=== PATIENT | female | born 1965 | race Caucasian/White ===

== ENCOUNTER 2019-11-03 17:55 | Inpatient (IN) | payer BC ==
[2019-11-03 18:10] VITALS: BMI 30.2
[2019-11-03] MEDS ORDERED: ONDANSETRON 4 MG/2 ML VIAL ONE (18:25)
[2019-11-03] MEDS ORDERED: FAMOTIDINE 20 MG/50 ML IVPB 20 MG/50 ML MG IVPB ONE ×3 (18:45→22:15)
[2019-11-03] MEDS ORDERED: ONDANSETRON 4 MG/2 ML VIAL IVPUSH ONE (18:50)
[2019-11-03 18:52] LABS: BASO % 0.9 % (0-2.0); EOS % 3.1 % (0-4.5); HEMATOCRIT 38.7 % (32.4-45.2); HEMOGLOBIN 12.7 GM/dL (10.7-15.3); LYMPH % 39.1 % (8-40); MCH 29.3 pg (25.7-33.7); MCHC 32.7 g/dl (32.0-36.0); MEAN CELL VOLUME 89.6 fl (80-96); MEAN PLT VOLUME 8.8 fl (7.5-11.1); MONO % 6.1 % (3.8-10.2); NEUT % 50.8 % (42.8-82.8); PLATELET COUNT 288 K/MM3 (134-434); RBC 4.32 M/mm3 (3.60-5.2); RDW 13.5 % (11.6-15.6); WHITE BLOOD COUNT 5.1 K/mm3 (4.0-10.0)
[2019-11-03 19:26] LABS: ALBUMIN 3.7 g/dl (3.4-5.0); BILIRUBIN,TOTAL 0.2 mg/dL (0.2-1); BLOOD UREA NITROGEN 11.2 mg/dL (7-18); CALCIUM 8.6 mg/dL (8.5-10.1); CREATININE 0.8 mg/dL (0.55-1.3); POTASSIUM 3.9 mmol/L (3.5-5.1); TOT PROT 7.2 g/dl (6.4-8.2)
--- NOTE | 2019-11-03 19:58 | PDOC ---
Documentation entered by Guerline Quevedo SCRIBE, acting as scribe for Mario Alberto Reaves MD. Mario Albreto Reaves MD: This documentation has been prepared by the Sae marte Adrianna, SCRIBE, under my direction and personally reviewed by me in its entirety. I confirm that the documentation accurately reflects all work, treatment, procedures, and medical decision making performed by me. History of Present Illness - General Chief Complaint: Pain Stated Complaint: ABD PAIN, chest pain Time Seen by Provider: 11/03/19 18:33 - History of Present Illness Initial Comments: The patient is a 54 year old female, with a significant PMH of HTN, hypothyroidism, DVT during (no longer on AC at this time), and + anticardiolipin, who presents to the ED for evaluation of abdominal pain for 1.5 hours. Patient complains of sharp pain, 10/10 is most prominent at the epigastrium that radiates into her bilateral shoulders and neck. Her pain is worse with eating, and she endorses associated nausea (without vomit). Patient notes she has had intermittent epigastric discomfort for the past year, but todays episode is much worse than her normal. Denies diarrhea, melena, hematochezia, anorexia, dysuria, frequency, urgency, hematuria, fever or chills. Allergies: NKA, NKDA Surgical History: Gastric bypass Social History: Denies EtOH, tobacco, or illicit drug use PCP: Dr. Quinones Past History - Past Medical History Allergies/Adverse Reactions: Allergies Allergy/AdvReac Type Severity Reaction Status Date / Time No Known Allergies Allergy Verified 11/03/19 18:10 COPD: No - Surgical History Abdominal Surgery: Yes (gastric bypass) - Psycho Social/Smoking Cessation Hx Smoking History: Never smoked Information on smoking cessation initiated: No Hx Alcohol Use: No Drug/Substance Use Hx: No Review of Systems - Review of Systems Comments:: CONSTITUTIONAL: No fever, no chills, no fatigue EYES: No visual changes ENT: No ear pain, no sore throat CARDIOVASCULAR: No chest pain, no palpitations RESPIRATORY: No cough, no SOB GI: +Epigastric abdominal pain that radiates to her bilateral shoulders and neck. +Nauseous. No vomiting, no constipation, no diarrhea GENITOURINARY: No dysuria, no frequency, no hematuria MUSKULOSKELETAL: No back pain, no joint pain, no myalgias SKIN: No rash NEURO: No headache *Physical Exam - Vital Signs Last Vital Signs Temp Pulse Resp BP Pulse Ox 97.8 F 74 19 174/95 H 98 11/03/19 18:06 11/03/19 18:06 11/03/19 18:06 11/03/19 18:06 11/03/19 18:06 - Physical Exam CONSTITUTIONAL: Well-appearing; well-nourished; in no apparent distress HEAD: Normocephalic; atraumatic EYES: PERRL; EOM intact. No scleral icterus. ENMT: External appears normal; normal oropharynx NECK: Supple; non-tender; no cervical lymphadenopathy CARD: Normal S1, S2; no murmurs, rubs, or gallops RESP: Normal chest excursion with respiration; breath sounds clear and equal bilaterally; no wheezes, rhonchi, or rales ABD: +Epigastric tenderness. Soft, non-distended; non-tender; no palpable organomegaly, no palpable hernias EXT: Normal ROM in all four extremities; non-tender to palpation; distal pulses intact SKIN: Warm, dry, no rash NEURO: No focal neurological deficiencies. ED Treatment Course - LABORATORY CBC & Chemistry Diagram: 11/03/19 18:34 11/03/19 18:34 - ADDITIONAL ORDERS Additional order review: Laboratory Results 11/03/19 18:34 Sodium 144 Potassium 3.9 Chloride 112 H Carbon Dioxide 25 Anion Gap 7 L BUN 11.2 Creatinine 0.8 Est GFR (CKD-EPI)AfAm 96.87 Est GFR (CKD-EPI)NonAf 83.58 Random Glucose 118 H Calcium 8.6 Total Bilirubin 0.2 AST 176 H ALT 83 H Alkaline Phosphatase 77 Creatine Kinase 124 Troponin I 0.02 Total Protein 7.2 Albumin 3.7 Lipase 385 11/03/19 18:34 RBC 4.32 MCV 89.6 MCHC 32.7 RDW 13.5 MPV 8.8 Neutrophils % 50.8 Lymphocytes % 39.1 Monocytes % 6.1 Eosinophils % 3.1 Basophils % 0.9 - RADIOLOGY Radiology Studies Ordered: Category Date Time Status CHEST X-RAY PORTABLE* [RAD] Stat Radiology 11/03/19 18:45 Taken ABDOMEN US -LIMITED [US] Stat Ultrasound 11/03/19 19:07 Ordered - Medications Given in the ED: ED Medications Discontinued Medications Generic Name Dose Route Start Last Admin Trade Name Eva PRN Reason Stop Dose Admin Ondansetron HCl 4 mg 11/03/19 18:50 11/03/19 18:51 Zofran Injection IVPUSH 11/03/19 18:51 4 mg ONCE ONE Administration Discharge - Discharge Information Problems reviewed: Yes Clinical Impression/Diagnosis: Abnormal LFTs Cholelithiasis Qualifiers: Cholelithiasis location: gallbladder Cholecystitis presence: without cholecystitis Biliary obstruction: without biliary obstruction Qualified Code(s) : K80.20 - Calculus of gallbladder without cholecystitis without obstruction Condition: Fair - Admission Yes - Follow up/Referral Referrals: Brendon Quinones MD [Primary Care Provider] - - Patient Discharge Instructions - Post Discharge Activity
[2019-11-03] MEDS ORDERED: DEXTROSE 5%-LACTATED RINGERS 1,000 ML IV SCH (20:00)
[2019-11-03] MEDS ORDERED: morphine CARPU-JECT 2 MG/1 ML DISP.SYRIN IVPUSH ONE (20:21)
[2019-11-03] MEDS ORDERED: MORPHINE SULFATE 2 MG/ML VIAL ONE (20:29)
[2019-11-03] MEDS ORDERED: ACETAMINOPHEN 325 MG TABLET (FP) PO PRN (21:15)
[2019-11-03] MEDS ORDERED: ONDANSETRON 4 MG/2 ML VIAL IVPUSH PRN (21:15)
[2019-11-03] MEDS ORDERED: MORPHINE SULFATE 2 MG/ML VIAL IVPUSH PRN (21:15)
--- NOTE | 2019-11-03 21:29 | HP ---
<Nandini Green - Last Filed: 11/04/19 00:05> CHIEF COMPLAINT: sudden onset epigastric/ruq pain PCP: Dr Quinones HISTORY OF PRESENT ILLNESS: 54 year old female, with a significant PMH of HTN, hypothyroidism, DVT during (no longer on AC at this time), and +anticardiolipin, who presents to the ED for evaluation of abdominal pain for 1.5 hours. Patient complains of sharp pain, 10/10 is most prominent at the epigastrium that radiates into her bilateral shoulders and neck. Her pain is worse with eating, and she endorses associated nausea (without vomit). The episode happened after ingestion of yogurt and marquez at [employer]. She denies any associated fever, chills, chest pain, SOB, acid.change in urine or bowel movement. Patient notes she has had intermittent epigastric discomfort for the past year with last episode a month ago, but todays episode is much worse than her normal. Pt admits to trying dietary modification for her gallstones without success. ER course was notable for: (1) CBC unremarkable, CMP with elevated LFTs and BG (2) EKG NSR, abdominal US showed multiple gallstones with one being 2cm near neck of GB, CBD 3mm (3) famotidine, morphine, fluids. Surgery and GI consult placed Recent Travel: none PAST MEDICAL HISTORY: as above PAST SURGICAL HISTORY: gastric bypass and lap for endometriosis Social History: Smoking:denies Alcohol: social drinker Drugs:denies Allergies No Known Allergies Allergy (Verified 11/03/19 18:10) HOME MEDICATIONS: Home Medications Medication Instructions Recorded Azilsartan Medoxomil [Edarbi] 40 mg PO HS 11/03/19 Levothyroxine [Synthroid -] 112 mcg PO DAILY 11/03/19 Nebivolol [Bystolic -] 5 mg PO HS 11/03/19 REVIEW OF SYSTEMS CONSTITUTIONAL: Absent: fever, chills, diaphoresis, generalized weakness, malaise, loss of appetite, weight change HEENT: Absent: rhinorrhea, nasal congestion, throat pain, throat swelling, difficulty swallowing, mouth swelling, ear pain, eye pain, visual changes CARDIOVASCULAR: Absent: chest pain, syncope, palpitations, irregular heart rate, lightheadedness , peripheral edema RESPIRATORY: Absent: cough, shortness of breath, dyspnea with exertion, orthopnea, wheezing, stridor, hemoptysis GASTROINTESTINAL:abdominal pain, nausea Absent: , abdominal distension, vomiting, diarrhea, constipation, melena, hematochezia GENITOURINARY: Absent: dysuria, frequency, urgency, hesitancy, hematuria, flank pain, genital pain MUSCULOSKELETAL: Absent: myalgia, arthralgia, joint swelling, back pain, neck pain SKIN: Absent: rash, itching, pallor HEMATOLOGIC/IMMUNOLOGIC: Absent: easy bleeding, easy bruising, lymphadenopathy, frequent infections ENDOCRINE: Absent: unexplained weight gain, unexplained weight loss, heat intolerance, cold intolerance NEUROLOGIC: Absent: headache, focal weakness or paresthesias, dizziness, unsteady gait, seizure, mental status changes, bladder or bowel incontinence PSYCHIATRIC: Absent: anxiety, depression, suicidal or homicidal ideation, hallucinations. PHYSICAL EXAMINATION Vital Signs - 24 hr 11/03/19 11/03/19 18:06 21:19 Temperature 97.8 F Pulse Rate 74 Pulse Rate [ 74 Right Radial] Respiratory 19 18 Rate Blood Pressure 174/95 H Blood Pressure 123/77 [Right Arm] O2 Sat by Pulse 98 100 Oximetry (%) GENERAL: Awake, alert, and fully oriented, in mod distress. HEAD: Normal with no signs of trauma. EYES: Pupils equal, round and reactive to light, extraocular movements intact, sclera anicteric, conjunctiva clear. No lid lag. EARS, NOSE, THROAT: oropharynx clear without exudates. Moist mucous membranes. NECK: Normal range of motion, supple without lymphadenopathy, JVD, or masses. LUNGS: Breath sounds equal, clear to auscultation bilaterally. No wheezes, and no crackles. No accessory muscle use. HEART: Regular rate and rhythm, normal S1 and S2 without murmur, rub or gallop. ABDOMEN: Soft, ARAMIS tenderness, not distended, normoactive bowel sounds, no guarding, no rebound, no masses. No hepatomegaly or splenomegaly. negative cronin sign MUSCULOSKELETAL: Normal range of motion at all joints. No bony deformities or tenderness. No CVA tenderness. UPPER EXTREMITIES: 2+ pulses, warm, well-perfused. No cyanosis. No clubbing. No peripheral edema. LOWER EXTREMITIES: 2+ pulses, warm, well-perfused. No calf tenderness. No peripheral edema. NEUROLOGICAL: Cranial nerves II-XII intact. Normal speech. gross motor and sensation intact. PSYCHIATRIC: Cooperative. Good eye contact. Appropriate mood and affect. SKIN: Warm, dry, normal turgor, no rashes or lesions noted, normal capillary refill. with e/o prior laparoscopic interventions. Laboratory Results - last 24 hr 11/03/19 11/03/19 18:34 18:34 WBC 5.1 RBC 4.32 Hgb 12.7 Hct 38.7 MCV 89.6 MCH 29.3 MCHC 32.7 RDW 13.5 Plt Count 288 MPV 8.8 Absolute Neuts (auto) 2.6 Neutrophils % 50.8 Lymphocytes % 39.1 Monocytes % 6.1 Eosinophils % 3.1 Basophils % 0.9 Nucleated RBC % 0 Sodium 144 Potassium 3.9 Chloride 112 H Carbon Dioxide 25 Anion Gap 7 L BUN 11.2 Creatinine 0.8 Est GFR (CKD-EPI)AfAm 96.87 Est GFR (CKD-EPI)NonAf 83.58 Random Glucose 118 H Calcium 8.6 Total Bilirubin 0.2 AST 176 H ALT 83 H Alkaline Phosphatase 77 Creatine Kinase 124 Troponin I 0.02 Total Protein 7.2 Albumin 3.7 Lipase 385 ASSESSMENT/PLAN: 54 year old female, with a significant PMH of HTN, hypothyroidism, DVT during (no longer on AC at this time), and +anticardiolipin, who presents to the ED for evaluation of abdominal pain admitted for biliary colic vs acute cholecystitis. RUQ abdominal pain with + history of gallstones . most likely biliary colic vs acute cholecystitis currently afebrile, w/o white count abdominal US showed multiple gallstones with one being 2cm near neck of GB, CBD 3mm Dr Young consulted and will take patient for lap peng tomorrow NPO after midnight Preop labs ordered NS@ 83cc/hr famotidine IV BID morphine 2mg Q4h f/u morning labs cbc, cmp HTN resume home meds bystolic 5mg HS edarbi 40 mg HS Hypothyroidism synthroid 112 mcg daily DVT SCDs Admit to med-surge ATTENDING PHYSICIAN STATEMENT I saw and evaluated the patient. I reviewed the resident's note and discussed the case with the resident. I agree with the resident's findings and plan as documented. SUBJECTIVE: OBJECTIVE: ASSESSMENT AND PLAN: <Vivek Javier - Last Filed: 11/04/19 01:40> CHIEF COMPLAINT: PCP: HISTORY OF PRESENT ILLNESS: ER course was notable for: (1) (2) (3) Recent Travel: PAST MEDICAL HISTORY: PAST SURGICAL HISTORY: Social History: Smoking: Alcohol: Drugs: Allergies No Known Allergies Allergy (Verified 11/03/19 18:10) HOME MEDICATIONS: Home Medications Medication Instructions Recorded Azilsartan Medoxomil [Edarbi] 40 mg PO HS 11/03/19 Levothyroxine [Synthroid -] 112 mcg PO DAILY 11/03/19 Nebivolol [Bystolic -] 5 mg PO HS 11/03/19 REVIEW OF SYSTEMS CONSTITUTIONAL: Absent: fever, chills, diaphoresis, generalized weakness, malaise, loss of appetite, weight change HEENT: Absent: rhinorrhea, nasal congestion, throat pain, throat swelling, difficulty swallowing, mouth swelling, ear pain, eye pain, visual changes CARDIOVASCULAR: Absent: chest pain, syncope, palpitations, irregular heart rate, lightheadedness , peripheral edema RESPIRATORY: Absent: cough, shortness of breath, dyspnea with exertion, orthopnea, wheezing, stridor, hemoptysis GASTROINTESTINAL: Absent: abdominal pain, abdominal distension, nausea, vomiting, diarrhea, constipation, melena, hematochezia GENITOURINARY: Absent: dysuria, frequency, urgency, hesitancy, hematuria, flank pain, genital pain MUSCULOSKELETAL: Absent: myalgia, arthralgia, joint swelling, back pain, neck pain SKIN: Absent: rash, itching, pallor HEMATOLOGIC/IMMUNOLOGIC: Absent: easy bleeding, easy bruising, lymphadenopathy, frequent infections ENDOCRINE: Absent: unexplained weight gain, unexplained weight loss, heat intolerance, cold intolerance NEUROLOGIC: Absent: headache, focal weakness or paresthesias, dizziness, unsteady gait, seizure, mental status changes, bladder or bowel incontinence PSYCHIATRIC: Absent: anxiety, depression, suicidal or homicidal ideation, hallucinations. PHYSICAL EXAMINATION Vital Signs - 24 hr 11/03/19 11/03/19 11/04/19 18:06 21:19 00:45 Temperature 97.8 F 98.2 F Pulse Rate 74 73 Pulse Rate [ 74 Right Radial] Respiratory 18 18 Rate Blood Pressure 174/95 H 139/71 Blood Pressure 123/77 [Right Arm] O2 Sat by Pulse 98 100 98 Oximetry (%) GENERAL: Awake, alert, and fully oriented, in no acute distress. HEAD: Normal with no signs of trauma. EYES: Pupils equal, round and reactive to light, extraocular movements intact, sclera anicteric, conjunctiva clear. No lid lag. EARS, NOSE, THROAT: Ears normal, nares patent, oropharynx clear without exudates. Moist mucous membranes. NECK: Normal range of motion, supple without lymphadenopathy, JVD, or masses. LUNGS: Breath sounds equal, clear to auscultation bilaterally. No wheezes, and no crackles. No accessory muscle use. HEART: Regular rate and rhythm, normal S1 and S2 without murmur, rub or gallop. ABDOMEN: Soft, nontender, not distended, normoactive bowel sounds, no guarding, no rebound, no masses. No hepatomegaly or splenomegaly. MUSCULOSKELETAL: Normal range of motion at all joints. No bony deformities or tenderness. No CVA tenderness. UPPER EXTREMITIES: 2+ pulses, warm, well-perfused. No cyanosis. No clubbing. No peripheral edema. LOWER EXTREMITIES: 2+ pulses, warm, well-perfused. No calf tenderness. No peripheral edema. NEUROLOGICAL: Cranial nerves II-XII intact. Normal speech. Normal gait. PSYCHIATRIC: Cooperative. Good eye contact. Appropriate mood and affect. SKIN: Warm, dry, normal turgor, no rashes or lesions noted, normal capillary refill. Laboratory Results - last 24 hr 11/03/19 11/03/19 11/03/19 18:34 18:34 22:45 WBC 5.1 RBC 4.32 Hgb 12.7 Hct 38.7 MCV 89.6 MCH 29.3 MCHC 32.7 RDW 13.5 Plt Count 288 MPV 8.8 Absolute Neuts (auto) 2.6 Neutrophils % 50.8 Lymphocytes % 39.1 Monocytes % 6.1 Eosinophils % 3.1 Basophils % 0.9 Nucleated RBC % 0 PT with INR 11.90 INR 1.01 PTT (Actin FS) 42.1 H Sodium 144 Potassium 3.9 Chloride 112 H Carbon Dioxide 25 Anion Gap 7 L BUN 11.2 Creatinine 0.8 Est GFR (CKD-EPI)AfAm 96.87 Est GFR (CKD-EPI)NonAf 83.58 Random Glucose 118 H Calcium 8.6 Total Bilirubin 0.2 AST 176 H ALT 83 H Alkaline Phosphatase 77 Creatine Kinase 124 Troponin I 0.02 Total Protein 7.2 Albumin 3.7 Lipase 385 ASSESSMENT/PLAN: Visit type - Emergency Visit Emergency Visit: Yes ED Registration Date: 11/03/19 Care time: The patient presented to the Emergency Department on the above date and was hospitalized for further evaluation of their emergent condition. - New Patient This patient is new to me today: Yes Date on this admission: 11/04/19 - Critical Care Critical Care patient: No Total Critical Care Time (in minutes): 50 Critical Care Statement: The care of this patient involved high complexity decision making to prevent further life threatening deterioration of the patient 's condition and/or to evaluate & treat vital organ system(s) failure or risk of failure.
[2019-11-03] MEDS ORDERED: SODIUM CHLORIDE 1,000 ML IV SCH ×2 (21:30)
--- NOTE | 2019-11-03 21:37 | CONSULT ---
Consult Consult Specialty:: surgery Reason for Consultation:: epigastric pain - History of Present Illness History of Present Illness: 54 yr old female with history of morbid obesity s/p sleeve 7 yrs ago presents with sudden onse of epigastric pain radiating to both shoulders and associated with nausea but no vomiting,. She reports a similar episode 1 month ago which resolved with no medical intervention - Alcohol/Substance Use Hx Alcohol Use: No - Smoking History Smoking history: Never smoked Home Medications - Allergies Allergies/Adverse Reactions: Allergies Allergy/AdvReac Type Severity Reaction Status Date / Time No Known Allergies Allergy Verified 11/03/19 18:10 - Home Medications Home Medications: Ambulatory Orders Azilsartan Medoxomil [Edarbi] 40 mg PO HS 11/03/19 Levothyroxine [Synthroid -] 112 mcg PO DAILY 11/03/19 Nebivolol [Bystolic -] 5 mg PO HS 11/03/19 Physical Exam Vital Signs: Vital Signs Temperature 97.8 F 11/03/19 18:06 Pulse Rate 74 11/03/19 21:19 Respiratory Rate 18 11/03/19 21:19 Blood Pressure 123/77 11/03/19 21:19 O2 Sat by Pulse Oximetry (%) 100 11/03/19 21:19 Labs: CBC, BMP 11/03/19 18:34 11/03/19 18:34 Imaging - Results Ultrasound: Report Reviewed, Image Reviewed Problem List - Problems (1) Abnormal LFTs Code(s): R94.5 - ABNORMAL RESULTS OF LIVER FUNCTION STUDIES (2) Cholelithiasis Code(s): K80.20 - CALCULUS OF GALLBLADDER W/O CHOLECYSTITIS W/O OBSTRUCTION Qualifiers: Cholelithiasis location: gallbladder Cholecystitis presence: without cholecystitis Biliary obstruction: without biliary obstruction Qualified Code(s): K80.20 - Calculus of gallbladder without cholecystitis without obstruction Assessment/Plan 54 yr old with a large 2cm stone near neck of GB, elevated LFTs. Biliary colic vs acute cholecystitis admitted we can plan for laparoscopic chlecystectomy tomorrow.
[2019-11-03] MEDS ORDERED: NEBIVOLOL 5 MG TABLET (FP) PO SCH (22:00)
[2019-11-03] MEDS: FAMOTIDINE 20 MG/50 ML IVPB 20 MG/50 ML MG IVPB SCH (22:42)
[2019-11-03 23:08] LABS: INR 1.01 (0.83-1.09); PROTHROMBIN TIME (PATIENT) 11.9 SEC (9.7-13.0)
[2019-11-03 23:10] LABS: ACTIVATED PTT 42.1 SECONDS (25.2-36.5)
--- NOTE | 2019-11-03 23:56 | CON.GI ---
Consult Consult Specialty:: Gastroenterology Referred by:: Dr Nilson Long Reason for Consultation:: Abdominal pain - History of Present Illness Chief Complaint: Severe epigastric pain History of Present Illness: 54F developed severe colicky epigastric pain that radiated into both shoulders after eating marquez with yogurt. She has similar pain about a month ago. Sonogram reveals a 2cm gallstone in the neck of the GB. She has a gastric sleeve created in 2011. She has never had any UGI problems. No liver disease. She had a colonoscopy with Dr. Winn earlier this year which was normal. She has the cardiolipin antibody - History Source History Provided By: Patient Limitations to Obtaining History: No Limitations - Past Medical History Cardio/Vascular: Yes: HTN Hepatobiliary: Yes: Cholelithiasis, Other (fatty liver) Heme/Onc: Yes: Hypercoaguable State (cardiolipin antibody), Other (Cardiolipin antibody) Endocrine: Yes: Hypothyroidism - Past Surgical History Past Surgical History: Yes: Colonoscopy Additional Surgical History: Gastric sleeve created 2011. 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 Place of : [facility] Home Medications - Allergies Allergies/Adverse Reactions: Allergies Allergy/AdvReac Type Severity Reaction Status Date / Time No Known Allergies Allergy Verified 11/03/19 18:10 - Home Medications Home Medications: Ambulatory Orders Azilsartan Medoxomil [Edarbi] 40 mg PO HS 11/03/19 Levothyroxine [Synthroid -] 112 mcg PO DAILY 11/03/19 Nebivolol [Bystolic -] 5 mg PO HS 11/03/19 Family Medical History Family Hx Cardiac Disorders: Father (congestive heart failure) Family Hx Diabetes: Mother Review of Systems - Review of Systems Constitutional: reports: Chills Eyes: reports: No Symptoms HENT: reports: No Symptoms Neck: reports: No Symptoms Cardiovascular: reports: No Symptoms Respiratory: reports: No Symptoms Gastrointestinal: reports: Abdominal Pain Genitourinary: reports: No Symptoms Physical Exam-GI Vital Signs: Vital Signs Temperature 97.8 F 11/03/19 18:06 Pulse Rate 74 11/03/19 21:19 Respiratory Rate 18 11/03/19 21:19 Blood Pressure 123/77 11/03/19 21:19 O2 Sat by Pulse Oximetry (%) 100 11/03/19 21:19 CBC,CMP WBC 5.1 K/mm3 (4.0-10.0) 11/03/19 18:34 RBC 4.32 M/mm3 (3.60-5.2) 11/03/19 18:34 Hgb 12.7 GM/dL (10.7-15.3) 11/03/19 18:34 Hct 38.7 % (32.4-45.2) 11/03/19 18:34 MCV 89.6 fl (80-96) 11/03/19 18:34 MCH 29.3 pg (25.7-33.7) 11/03/19 18:34 MCHC 32.7 g/dl (32.0-36.0) 11/03/19 18:34 RDW 13.5 % (11.6-15.6) 11/03/19 18:34 Plt Count 288 K/MM3 (134-434) 11/03/19 18:34 MPV 8.8 fl (7.5-11.1) 11/03/19 18:34 Absolute Neuts (auto) 2.6 K/mm3 (1.5-8.0) 11/03/19 18:34 Neutrophils % 50.8 % (42.8-82.8) 11/03/19 18:34 Lymphocytes % 39.1 % (8-40) 11/03/19 18:34 Monocytes % 6.1 % (3.8-10.2) 11/03/19 18:34 Eosinophils % 3.1 % (0-4.5) 11/03/19 18:34 Basophils % 0.9 % (0-2.0) 11/03/19 18:34 Nucleated RBC % 0 % (0-0) 11/03/19 18:34 Sodium 144 mmol/L (136-145) 11/03/19 18:34 Potassium 3.9 mmol/L (3.5-5.1) 11/03/19 18:34 Chloride 112 mmol/L (98-107) H 11/03/19 18:34 Carbon Dioxide 25 mmol/L (21-32) 11/03/19 18:34 Anion Gap 7 MMOL/L (8-16) L 11/03/19 18:34 BUN 11.2 mg/dL (7-18) 11/03/19 18:34 Creatinine 0.8 mg/dL (0.55-1.3) 11/03/19 18:34 Est GFR (CKD-EPI)AfAm 96.87 11/03/19 18:34 Est GFR (CKD-EPI)NonAf 83.58 11/03/19 18:34 Random Glucose 118 mg/dL (74-106) H 11/03/19 18:34 Calcium 8.6 mg/dL (8.5-10.1) 11/03/19 18:34 Total Bilirubin 0.2 mg/dL (0.2-1) 11/03/19 18:34 AST 176 U/L (15-37) H 11/03/19 18:34 ALT 83 U/L (13-61) H 11/03/19 18:34 Alkaline Phosphatase 77 U/L (45-117) 11/03/19 18:34 Creatine Kinase 124 U/L (26-192) 11/03/19 18:34 Troponin I 0.02 ng/ml (0.00-0.05) 11/03/19 18:34 Total Protein 7.2 g/dl (6.4-8.2) 11/03/19 18:34 Albumin 3.7 g/dl (3.4-5.0) 11/03/19 18:34 Lipase 385 U/L (73-393) 11/03/19 18:34 Current Medications Generic Name Dose Route Start Last Admin Trade Name Freq PRN Reason Stop Dose Admin Acetaminophen 650 mg 11/03/19 21:15 Tylenol - PO Q6H PRN PAIN LEVEL 4 - 6 Sodium Chloride 1,000 mls @ 83 mls/hr 11/03/19 21:30 Normal Saline - IV ASDIR TALISHA Famotidine/Sodium Chloride 20 mg in 50 mls @ 100 mls/hr 11/03/19 22:00 22:42 Pepcid 20 Mg Premixed Ivpb - IVPB 100 mls/hr BID TALISHA Administration Piperacillin Sod/Tazobactam 50 mls @ 100 mls/hr 11/04/19 02:00 Sod 3.375 gm/ Dextrose IVPB Q8H-IV TALISHA Protocol Levothyroxine Sodium 112 mcg 11/04/19 07:00 Synthroid - PO DAILY@0700 TALISHA Morphine Sulfate 2 mg 11/03/19 21:15 Morphine Sulfate IVPUSH Q4H PRN PAIN LEVEL 6-10 Nebivolol 5 mg 11/03/19 22:00 11/03/19 22:59 Bystolic - PO 5 mg HS TALISHA Administration Constitutional: Yes: Calm Eyes: Yes: Conjunctiva Clear HENT: Yes: Atraumatic Neck: Yes: Supple Cardiovascular: Yes: Regular Rate and Rhythm Respiratory: Yes: CTA Bilaterally Gastrointestinal Inspection: Yes: Scars (healed laparoscopic incisions) ...Auscultate: Yes: Normoactive Bowel Sounds ...Palpate: Yes: Tenderness (mild RUQ tenderness) ...Rectal Exam: Yes: Deferred Labs: CBC, BMP 11/03/19 18:34 11/03/19 18:34 INR, PTT INR 1.01 (0.83-1.09) 11/03/19 22:45 Laboratory Tests 12/24/18 11/03/19 17:19 18:34 AST 13 L 176 H ALT 21 83 H Problem List - Problems (1) Biliary colic Code(s): K80.50 - CALCULUS OF BILE DUCT W/O CHOLANGITIS OR CHOLECYST W/O OBST (2) Abnormal LFTs Code(s): R94.5 - ABNORMAL RESULTS OF LIVER FUNCTION STUDIES (3) Cholecystitis Code(s): K81.9 - CHOLECYSTITIS, UNSPECIFIED (4) Cholelithiasis Code(s): K80.20 - CALCULUS OF GALLBLADDER W/O CHOLECYSTITIS W/O OBSTRUCTION Qualifiers: Cholelithiasis location: gallbladder Cholecystitis presence: without cholecystitis Biliary obstruction: without biliary obstruction Qualified Code(s): K80.20 - Calculus of gallbladder without cholecystitis without obstruction (5) Bariatric surgery status Code(s): Z98.84 - BARIATRIC SURGERY STATUS (6) Hypothyroid Code(s): E03.9 - HYPOTHYROIDISM, UNSPECIFIED (7) Hypertension Code(s): I10 - ESSENTIAL (PRIMARY) HYPERTENSION (8) Anti-cardiolipin antibody positive Code(s): R76.0 - RAISED ANTIBODY TITER Assessment/Plan Assessment: - The symptom complex is most consistent with acute cholecystitis due to a large gallstone near the gallbladder neck. The gallstone size and lack of alkaline phosphatase and bilirubin elevation argue against choledocholithiasis. The transaminase elevations can be attributed to the cholecystitis. I doubt they reflect ALLISON as her transaminases were normal in 12/29 - Fatty liver -Cardiolipin antibody status Plan: -- Will start Zosyn as she is experiencing chills -- Will refrain from A/C for now as she is likely to undergo cholecystectomy tomorrow but she will need coverage after surgery -- Follow LFTs. Marked changes will mandate an MRCP
[2019-11-04] MEDS ORDERED: DEXTROSE 5%-WATER - 50 ML IVPB ONE ×2 (01:35→08:55)
[2019-11-04] MEDS ORDERED: PIPERACILLIN/TAZOBACTAM 3.375 GM VIAL IVPB ONE ×2 (01:35→08:54)
[2019-11-04] MEDS: PIPERACILLIN/TAZOB 3.375 GM 3.375 GM in DEXTROSE 5%-WATER - 50 ML IVPB SCH ×3 (01:44→09:10)
[2019-11-04 06:47] LABS: BASO % 0.9 % (0-2.0); HEMATOCRIT 32.2 % (32.4-45.2); HEMOGLOBIN 10.8 GM/dL (10.7-15.3); LYMPH % 38.1 % (8-40); MCH 29.7 pg (25.7-33.7); MCHC 33.5 g/dl (32.0-36.0); MEAN CELL VOLUME 88.7 fl (80-96); MEAN PLT VOLUME 8.9 fl (7.5-11.1); MONO % 5.8 % (3.8-10.2); NEUT % 51.2 % (42.8-82.8); PLATELET COUNT 233 K/MM3 (134-434); RBC 3.64 M/mm3 (3.60-5.2); RDW 13.5 % (11.6-15.6); WHITE BLOOD COUNT 4.2 K/mm3 (4.0-10.0)
[2019-11-04 06:56] LABS: AMYLASE 41 U/L (25-115); LIPASE 189 U/L (73-393)
[2019-11-04] MEDS ORDERED: LEVOTHYROXINE NA 112 MCG TABLET (FP) PO SCH (07:00)
[2019-11-04 07:08] LABS: ALBUMIN 2.8 g/dl (3.4-5.0); BILIRUBIN,TOTAL 0.5 mg/dL (0.2-1); BLOOD UREA NITROGEN 7.8 mg/dL (7-18); CALCIUM 8.2 mg/dL (8.5-10.1); CREATININE 0.8 mg/dL (0.55-1.3); TOT PROT 5.6 g/dl (6.4-8.2)
--- NOTE | 2019-11-04 08:21 | PN ---
Progress Note, Physician History of Present Illness: 54yo femalw with pmh of htn,hypothyroidism,gastric sleeve developed severe colicky epigastric pain that radiated into both shoulders after eating marquez with yogurt. She has similar pain about a month ago. Sonogram reveals a 2cm gallstone in the neck of the GB This am feels better with less pain - Current Medication List Current Medications: Active Medications Acetaminophen (Tylenol -) 650 mg PO Q6H PRN PRN Reason: PAIN LEVEL 4 - 6 Sodium Chloride (Normal Saline -) 1,000 mls @ 83 mls/hr IV ASDIR [facility] Last Admin: 11/04/19 00:10 Dose: 83 mls/hr Famotidine/Sodium Chloride (Pepcid 20 Mg Premixed Ivpb -) 20 mg in 50 mls @ 100 mls/hr IVPB BID [facility] Last Admin: 11/03/19 22:42 Dose: 100 mls/hr Piperacillin Sod/Tazobactam (Sod 3.375 gm/ Dextrose) 50 mls @ 100 mls/hr IVPB Q8H-IV TALISHA; Protocol Stop: 11/04/19 18:29 Last Admin: 11/04/19 01:44 Dose: 100 mls/hr Piperacillin Sod/Tazobactam (Sod 3.375 gm/ Dextrose) 50 mls @ 100 mls/hr IVPB Q8H-IV TALISHA; Protocol Levothyroxine Sodium (Synthroid -) 112 mcg PO DAILY@0700 [facility] Last Admin: 11/04/19 06:19 Dose: Not Given Morphine Sulfate (Morphine Sulfate) 2 mg IVPUSH Q4H PRN PRN Reason: PAIN LEVEL 6-10 Nebivolol (Bystolic -) 5 mg PO HS [facility] Last Admin: 11/03/19 22:59 Dose: 5 mg - Objective Vital Signs: Vital Signs Temperature 97.6 F 11/04/19 06:00 Pulse Rate 75 11/04/19 06:00 Respiratory Rate 18 11/04/19 06:00 Blood Pressure 121/59 L 11/04/19 06:00 O2 Sat by Pulse Oximetry (%) 98 11/04/19 00:45 Cardiovascular: Yes: Regular Rate and Rhythm Respiratory: Yes: Regular, CTA Bilaterally Gastrointestinal: Yes: Normal Bowel Sounds, Soft, Tenderness (minimal tenderness ) Edema: No Labs: CBC, BMP 11/04/19 05:40 11/04/19 05:40 INR, PTT INR 1.01 (0.83-1.09) 11/03/19 22:45 Problem List - Problems (1) Cholelithiasis Assessment/Plan: GI AND SURGERY CONSULTS APPRECIATED IV ABX FOR THE OR TODAY DVT PROPHYLAXIS Code(s): K80.20 - CALCULUS OF GALLBLADDER W/O CHOLECYSTITIS W/O OBSTRUCTION Qualifiers: Cholelithiasis location: gallbladder Cholecystitis presence: without cholecystitis Biliary obstruction: without biliary obstruction Qualified Code(s): K80.20 - Calculus of gallbladder without cholecystitis without obstruction (2) Abnormal LFTs Assessment/Plan: MONITOR Code(s): R94.5 - ABNORMAL RESULTS OF LIVER FUNCTION STUDIES (3) Anti-cardiolipin antibody positive Assessment/Plan: ANTICOAGULATION POSTOP HEM CONSULT Code(s): R76.0 - RAISED ANTIBODY TITER (4) Bariatric surgery status Code(s): Z98.84 - BARIATRIC SURGERY STATUS (5) Hypertension Assessment/Plan: BYSTOLIC HOLD ARB Code(s): I10 - ESSENTIAL (PRIMARY) HYPERTENSION (6) Hypothyroid Assessment/Plan: SYMTHROID 112 TSH Code(s): E03.9 - HYPOTHYROIDISM, UNSPECIFIED
[2019-11-04] MEDS ORDERED: BUPIVACAINE HCL/PF 0.5% (5 MG/ML) 30 ML VIAL IJ ONE ×2 (08:59→12:50)
[2019-11-04 09:39] LABS: CHOLESTEROL 154 mg/dL (50-200); HDL CHOLESTEROL 54 mg/dL (40-60); LDL CHOLESTEROL (ONLY SJRH) 62 mg/dL (5-100); TRIGLYCERIDES 178 mg/dL (0-150)
[2019-11-04] MEDS: FAMOTIDINE 20 MG/50 ML IVPB 20 MG/50 ML MG IVPB SCH ×2 (10:23→21:54)
--- NOTE | 2019-11-04 10:28 | EKG ---
Test Reason : Blood Pressure : / mmHG Vent. Rate : 066 BPM Atrial Rate : 066 BPM P-R Int : 140 ms QRS Dur : 088 ms QT Int : 434 ms P-R-T Axes : 034 031 011 degrees QTc Int : 454 ms NORMAL SINUS RHYTHM NORMAL ECG WHEN COMPARED WITH ECG OF 03-NOV-2019 18:34, NO SIGNIFICANT CHANGE WAS FOUND Confirmed by MILES THACKER MD ([id number]) on 11/04/2019 10:28:15 AM Referred By: RICHIE GONZALEZ DR Confirmed By:MILES THACKER MD
--- NOTE | 2019-11-04 10:29 | EKG ---
Test Reason : Blood Pressure : / mmHG Vent. Rate : 080 BPM Atrial Rate : 080 BPM P-R Int : 136 ms QRS Dur : 084 ms QT Int : 410 ms P-R-T Axes : 034 036 012 degrees QTc Int : 472 ms NORMAL SINUS RHYTHM NORMAL ECG NO PREVIOUS ECGS AVAILABLE Confirmed by MILES THACKER MD ([id number]) on 11/04/2019 10:28:45 AM Referred By: Confirmed By:MILES THACKER MD
[2019-11-04] MEDS ORDERED: PROPOFOL 20 ML ONE (11:36)
[2019-11-04] MEDS ORDERED: MIDAZOLAM HCL 2 MG/2 ML SINGLE DOSE VIAL ONE (11:36)
[2019-11-04] MEDS ORDERED: KETAMINE HCL 200 MG/20 ML VIAL ONE (11:36)
[2019-11-04] MEDS ORDERED: ROCURONIUM BROMIDE 50 MG/5 ML SYRINGE ONE (11:36)
[2019-11-04] MEDS ORDERED: LIDOCAINE HCL/PF 2% SDV 5ML VIAL ONE (11:38)
[2019-11-04] MEDS ORDERED: DEXAMETHASONE SOD PHOSPHATE 4 MG/1 ML VIAL ONE ×2 (11:38→12:17)
[2019-11-04] MEDS ORDERED: KETOROLAC TROMETHAMINE 30 MG/1 ML VIAL ONE (11:38)
[2019-11-04] MEDS ORDERED: SODIUM CHLORIDE 0.9% P/F 10 ML VIAL IJ ONE (11:40)
[2019-11-04] MEDS ORDERED: BUPIVACAINE LIPOSOME/PF (EXPAREL) 266 MG/20 ML VIAL ONE (12:15)
[2019-11-04] MEDS ORDERED: LACTATED RINGERS SOLUTION 1,000 ML IV SCH ×2 (12:45→16:21)
[2019-11-04] MEDS ORDERED: ePHEDrine SULFATE 50 MG/1 ML AMPULE ONE (12:49)
[2019-11-04] MEDS ORDERED: BUPIVACAINE LIPOSOME/PF (EXPAREL) 266 MG/20 ML VIAL IJ ONE (12:50)
[2019-11-04] MEDS ORDERED: GLYCOPYRROLATE 0.2 MG/1 ML VIAL ONE ×3 (12:55→12:58)
[2019-11-04] MEDS ORDERED: NEOSTIGMINE METHYLSULFATE 0.5 MG/ML - 10 ML MDV ONE (12:55)
[2019-11-04] MEDS ORDERED: ACETAMINOPHEN INJECTION 100 ML IVPB ONE (12:56)
--- NOTE | 2019-11-04 13:09 | OP ---
Operative Note - Note: Operative Date: 11/04/19 Pre-Operative Diagnosis: Acute cholecystitis Operation: laparoscopic cholecystectomy Findings: large stone and edema Post-Operative Diagnosis: Same as Pre-op Surgeon: Yash Dash Anesthesia: General Specimens Removed: Gall bladder Estimated Blood Loss (mls): 10 Operative Report Dictated: Yes
[2019-11-04] MEDS ORDERED: oxyCODONE HCL 5 MG TABLET PO PRN (13:16)
--- NOTE | 2019-11-04 13:19 | SURG ---
Surgery House Decorator Note House Decorator: Ravin Pappas PA-C Date of Service: 11/04/19 Diagnosis: Acute cholecystitis Procedure: laparoscopic cholecystectomy I was present for the entirety of the operative procedure. For further detail, please refer to operative report. Visit type - Case Type Case Type: ED Admission - Emergency Emergency Visit: Yes ED Registration Date: 11/03/19 Care time: The patient presented to the Emergency Department on the above date and was hospitalized for further evaluation of their emergent condition. - New patient This patient is new to me today: No - Critical Care Critical Care patient: No
[2019-11-04] MEDS ORDERED: ACETAMINOPHEN 1000 MG/100 ML VIAL (NON FORMULARY) IVPB ONE ×2 (13:46→13:47)
[2019-11-04] MEDS ORDERED: HYDROmorphone HCl 2 MG/ML VIAL IVPB ONE (15:04)
[2019-11-04] MEDS ORDERED: HYDROmorphone HCl 2 MG/ML VIAL ONE (15:06)
[2019-11-04] MEDS ORDERED: HYDROmorphone HCl 2 MG/ML VIAL IVPUSH ONE ×3 (15:11→15:42)
[2019-11-04] MEDS ORDERED: HYDROmorphone HCL CARPU-JECT 2 MG/1 ML DISP.SYRIN IVPUSH ONE (15:22)
--- NOTE | 2019-11-04 16:02 | CONSULT ---
Consultation: REQUESTING PROVIDER: CONSULT REQUEST: We have been asked to medically evaluate this patient for ( hisoty of + anticardiolipin antibodies ). HISTORY OF PRESENT ILLNESS: 54 year old female, with a significant PMH of HTN, hypothyroidism,3 miscarriage first trimester , DVT during (no longer on AC at this time), and + anticardiolipin, who presents to the ED for evaluation of abdominal pain for 1.5 hours. radiated to her B/L shoulders , associated nausea (without vomit). The episode happened after ingestion of yogurt and marquez at [employer]. She denies any associated fever, chills, chest pain, SOB, acid.change in urine or bowel movement. had 3 similar episode in the past but this is the worse no fever , chills, headache , blurry vision or any urinary symptoms , denies any heatemesis or hematochesia we were consulted for history of DVT and anticardiolipin antibodies Recent Travel: none PAST MEDICAL HISTORY: as above PAST SURGICAL HISTORY: gastric bypass and lap for endometriosisx 2 Social History: Smoking:denies(former in her 20s 1/2 PPD for couple years Alcohol: social drinker wine Drugs:denies NKDS REVIEW OF SYSTEMS: CONSTITUTIONAL: Absent: fever, chills, diaphoresis, generalized weakness, malaise, loss of appetite, weight change gain 5 pound and then lost 22 in last 2 years HEENT: Absent: rhinorrhea, nasal congestion, throat pain, throat swelling, difficulty swallowing, mouth swelling, ear pain, eye pain, visual changes CARDIOVASCULAR: Absent: chest pain, syncope, palpitations, irregular heart rate, lightheadedness , peripheral edema RESPIRATORY: Absent: cough, shortness of breath, dyspnea with exertion, orthopnea, wheezing, stridor, hemoptysis GASTROINTESTINAL: Absent: abdominal pain, abdominal distension, nausea, vomiting, diarrhea, constipation, melena, hematochezia GENITOURINARY: Absent: dysuria, frequency, urgency, hesitancy, hematuria, flank pain, genital pain MUSCULOSKELETAL: Absent: myalgia, arthralgia, joint swelling, back pain, neck pain SKIN: Absent: rash, itching, pallor HEMATOLOGIC/IMMUNOLOGIC: Absent: easy bleeding, easy bruising, lymphadenopathy, frequent infections ENDOCRINE: Absent: unexplained weight gain, unexplained weight loss, heat intolerance, cold intolerance NEUROLOGIC: Absent: headache, focal weakness or paresthesias, dizziness, unsteady gait, seizure, mental status changes, bladder or bowel incontinence PSYCHIATRIC: Absent: anxiety, depression, suicidal or homicidal ideation, hallucinations. PHYSICAL EXAMINATION Vital Signs - 24 hr 11/03/19 11/03/19 11/04/19 18:06 21:19 00:45 Temperature 97.8 F 98.2 F Pulse Rate 74 73 Pulse Rate [ 74 Right Radial] Respiratory 19 18 18 Rate Blood Pressure 174/95 H 139/71 Blood Pressure 123/77 [Right Arm] O2 Sat by Pulse 98 100 98 Oximetry (%) 11/04/19 11/04/19 11/04/19 06:00 08:49 13:15 Temperature 97.6 F 98.0 F 98.2 F Pulse Rate 75 75 74 Pulse Rate [ Right Radial] Respiratory 18 16 18 Rate Blood Pressure 121/59 L 123/67 115/61 Blood Pressure [Right Arm] O2 Sat by Pulse 95 Oximetry (%) 11/04/19 11/04/19 11/04/19 13:30 13:45 14:00 Temperature Pulse Rate 69 69 63 Pulse Rate [ Right Radial] Respiratory 17 20 16 Rate Blood Pressure 102/64 103/65 97/63 Blood Pressure [Right Arm] O2 Sat by Pulse 96 95 96 Oximetry (%) 11/04/19 11/04/19 11/04/19 14:15 14:30 14:45 Temperature Pulse Rate 64 70 64 Pulse Rate [ Right Radial] Respiratory 15 14 13 Rate Blood Pressure 103/64 96/82 104/67 Blood Pressure [Right Arm] O2 Sat by Pulse 95 94 L 93 L Oximetry (%) 11/04/19 11/04/19 11/04/19 15:00 15:15 15:30 Temperature Pulse Rate 65 62 65 Pulse Rate [ Right Radial] Respiratory 15 15 12 Rate Blood Pressure 107/65 110/69 117/69 Blood Pressure [Right Arm] O2 Sat by Pulse 93 L 94 L 94 L Oximetry (%) 11/04/19 15:45 Temperature Pulse Rate 74 Pulse Rate [ Right Radial] Respiratory 13 Rate Blood Pressure 121/79 Blood Pressure [Right Arm] O2 Sat by Pulse 95 Oximetry (%) GENERAL: Awake, alert, and fully oriented,seen in recovery room , fatigue HEAD: NC/AT EYES: WALTER, EOMI ,sclera anicteric, ENT: Dry mucous membranes. NECK: supple breast no masses palpated LUNGS: Breath sounds equal, clear to auscultation bilaterally. No wheezes, and no crackles. No accessory muscle use. HEART: Regular rate and rhythm, normal S1 and S2 without murmur, rub or gallop. ABDOMEN: Soft, diffuse tenderness from surgery , mild distended, normoactive bowel sounds, LOWER EXTREMITIES: 2+ pulses, warm, well-perfused. No calf tenderness. No peripheral edema. NEUROLOGICAL: no focal deficit . Normal speech. PSYCHIATRIC: Cooperative. SKIN: Warm, dry, 3 laparoscopic surgery wound in the belly node : no lymph nodes palpable Laboratory Results - last 24 hr 11/03/19 11/03/19 11/03/19 18:34 18:34 22:45 WBC 5.1 RBC 4.32 Hgb 12.7 Hct 38.7 MCV 89.6 MCH 29.3 MCHC 32.7 RDW 13.5 Plt Count 288 MPV 8.8 Absolute Neuts (auto) 2.6 Neutrophils % 50.8 Lymphocytes % 39.1 Monocytes % 6.1 Eosinophils % 3.1 Basophils % 0.9 Nucleated RBC % 0 PT with INR 11.90 INR 1.01 PTT (Actin FS) 42.1 H Sodium 144 Potassium 3.9 Chloride 112 H Carbon Dioxide 25 Anion Gap 7 L BUN 11.2 Creatinine 0.8 Est GFR (CKD-EPI)AfAm 96.87 Est GFR (CKD-EPI)NonAf 83.58 Random Glucose 118 H Calcium 8.6 Total Bilirubin 0.2 AST 176 H ALT 83 H Alkaline Phosphatase 77 Creatine Kinase 124 Troponin I 0.02 C-Reactive Protein Total Protein 7.2 Albumin 3.7 Triglycerides Cholesterol Total LDL Cholesterol HDL Cholesterol Total Amylase Lipase 385 TSH Free T4 Blood Type Antibody Screen 11/04/19 11/04/19 11/04/19 05:40 05:40 05:40 WBC 4.2 RBC 3.64 Hgb 10.8 Hct 32.2 L D MCV 88.7 MCH 29.7 MCHC 33.5 RDW 13.5 Plt Count 233 MPV 8.9 Absolute Neuts (auto) 2.1 Neutrophils % 51.2 Lymphocytes % 38.1 Monocytes % 5.8 Eosinophils % 4.0 Basophils % 0.9 Nucleated RBC % 0 PT with INR INR PTT (Actin FS) Sodium 146 H Potassium 4.0 Chloride 115 H Carbon Dioxide 25 Anion Gap 6 L BUN 7.8 Creatinine 0.8 Est GFR (CKD-EPI)AfAm 96.87 Est GFR (CKD-EPI)NonAf 83.58 Random Glucose 79 Calcium 8.2 L Total Bilirubin 0.5 AST 116 H ALT 108 H Alkaline Phosphatase 75 Creatine Kinase Troponin I C-Reactive Protein Total Protein 5.6 L Albumin 2.8 L Triglycerides Cholesterol Total LDL Cholesterol HDL Cholesterol Total Amylase Lipase TSH Free T4 Blood Type A POSITIVE Antibody Screen Negative 11/04/19 05:40 WBC RBC Hgb Hct MCV MCH MCHC RDW Plt Count MPV Absolute Neuts (auto) Neutrophils % Lymphocytes % Monocytes % Eosinophils % Basophils % Nucleated RBC % PT with INR INR PTT (Actin FS) Sodium Potassium Chloride Carbon Dioxide Anion Gap BUN Creatinine Est GFR (CKD-EPI)AfAm Est GFR (CKD-EPI)NonAf Random Glucose Calcium Total Bilirubin AST ALT Alkaline Phosphatase Creatine Kinase Troponin I C-Reactive Protein < 0.3 Total Protein Albumin Triglycerides 178 H Cholesterol 154 Total LDL Cholesterol 62 HDL Cholesterol 54 Total Amylase 41 Lipase 189 TSH 3.54 Free T4 0.88 Blood Type Antibody Screen Active Medications Generic Name Dose Route Start Last Admin Trade Name Freq PRN Reason Stop Dose Admin Acetaminophen 650 mg 11/03/19 21:15 Tylenol - PO Q6H PRN PAIN LEVEL 4 - 6 Sodium Chloride 1,000 mls @ 83 mls/hr 11/03/19 21:30 11/04/19 00:10 Normal Saline - IV 83 mls/hr ASDIR TALISHA Administration Famotidine/Sodium Chloride 20 mg in 50 mls @ 100 mls/hr 11/03/19 22:00 10:23 Pepcid 20 Mg Premixed Ivpb - IVPB Not Given BID TALISHA Lactated Ringer's 1,000 mls @ 125 mls/hr 11/04/19 12:45 Lactated Ringers Solution IV ASDIR TALISHA Levothyroxine Sodium 112 mcg 11/04/19 07:00 11/04/19 06:19 Synthroid - PO Not Given DAILY@0700 TALISHA Morphine Sulfate 2 mg 11/03/19 21:15 Morphine Sulfate IVPUSH Q4H PRN PAIN LEVEL 7-10 Nebivolol 5 mg 11/03/19 22:00 11/03/19 22:59 Bystolic - PO 5 mg HS TALISHA Administration Oxycodone HCl 5 mg 11/04/19 13:16 Roxicodone - PO Q4H PRN PAIN LEVEL 1-2 CBC, BMP 11/04/19 05:40 11/04/19 05:40 ASSESSMENT/PLAN: # 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 was on Quniline stop on her own in 2011 # 3 first trimester miscarriages * mixed studies , PT, PTT , anti cardiolipin ab , * denies any recent NSAIDS , or herbal supplement used * Anticardiolipin antibodies (IgG and IgM), [id number] (GP) I ab (IgM and IgG), Lupus anticoagulant, aPTT * Consider prophylactic ASA. Agree with DVT prophylaxis. * Follow up with Rheumatology # Acute cholecystitis POD # 0 , pain control , IV fluids , prophylaxis abx #HTN cont home meds Bystolic 5 mg and Azilsartan 40 mg # Hypothyroidism cont synthroid 112 mcg Q Am Dispo: We will continue to follow the patient. Thank you for this consultative opportunity. Visit type - Emergency Visit Emergency Visit: Yes ED Registration Date: 11/03/19 Care time: The patient presented to the Emergency Department on the above date and was hospitalized for further evaluation of their emergent condition. - New Patient This patient is new to me today: Yes Date on this admission: 11/05/19 - Critical Care Critical Care patient: No ATTENDING PHYSICIAN STATEMENT I saw and evaluated the patient. I reviewed the resident's note and discussed the case with the resident. I agree with the resident's findings and plan as documented. SUBJECTIVE: OBJECTIVE: ASSESSMENT AND PLAN:
[2019-11-04] MEDS ORDERED: ACETAMINOPHEN 325 MG TABLET (FP) PO PRN (16:21)
[2019-11-04] MEDS ORDERED: SODIUM CHLORIDE 1,000 ML IV SCH (16:21)
[2019-11-04] MEDS ORDERED: MORPHINE SULFATE 2 MG/ML VIAL IVPUSH PRN (16:21)
--- NOTE | 2019-11-04 19:21 | PN ---
Teaching Attending Note Name of Resident: Binh Mccracken ATTENDING PHYSICIAN STATEMENT I saw and evaluated the patient. I reviewed the resident's note and discussed the case with the resident. I agree with the resident's findings and plan as documented. 54 y/o lady with a significant PMH of HTN, hypothyroidism,3 miscarriage first trimester, DVT during (no longer on AC at this time), and + anticardiolipin, who presents to the ED for evaluation of abdominal pain for 1.5 hours. radiated to her B/L shoulders , associated nausea (without vomit). The episode happened after ingestion of yogurt and marquez at [employer]. She denies any associated fever, chills, chest pain, SOB, acid.change in urine or bowel movement. had 3 similar episode in the past but this is the worse no fever , chills, headache , blurry vision or any urinary symptoms , denies any hematemesis or hematochezia Recommend: 1) Anticardiolipin antibodies (IgG and IgM), [id number] (GP) I ab (IgM and IgG), Lupus anticoagulant, aPTT 2) Consider prophylactic ASA. Agree with DVT prophylaxis. 3) Follow up with Rheumatology 4) Acute Cholecystitis. POD#0. Per Surgery 5) Thank you for this consultation
[2019-11-04] MEDS: HEPARIN NA (PORCINE) 5,000 UNITS/ML 1ML VIAL SQ SCH (21:53)
[2019-11-04] MEDS ORDERED: NEBIVOLOL 5 MG TABLET (FP) PO SCH (22:00)
[2019-11-04] MEDS ORDERED: MAGNESIUM HYDROX 2400MG/30ML ORAL SUSPENSION 30 ML CUP PO PRN (23:02)
[2019-11-04] MEDS: DOCUSATE SODIUM 100 MG CAPSULE (FP) PO SCH (23:18)
[2019-11-05] MEDS ORDERED: PIPERACILLIN/TAZOB 3.375 GM 3.375 GM in DEXTROSE 5%-WATER - 50 ML IVPB SCH (02:00)
--- NOTE | 2019-11-05 06:27 | PN ---
Progress Note, Physician History of Present Illness: S/p ChavezJanet Jefferson POD1 Feeling well tolerating diet - Current Medication List Current Medications: Active Medications Acetaminophen (Tylenol -) 650 mg PO Q6H PRN PRN Reason: PAIN LEVEL 4 - 6 Docusate Sodium (Colace -) 100 mg PO BID [facility] Last Admin: 11/04/19 23:18 Dose: 100 mg Heparin Sodium (Porcine) (Heparin -) 5,000 unit SQ TID [facility] Last Admin: 11/04/19 21:53 Dose: 5,000 unit Lactated Ringer's (Lactated Ringers Solution) 1,000 mls @ 125 mls/hr IV ASDIR [facility] Last Admin: 11/04/19 16:55 Dose: Not Given Famotidine/Sodium Chloride (Pepcid 20 Mg Premixed Ivpb -) 20 mg in 50 mls @ 100 mls/hr IVPB BID [facility] Last Admin: 11/04/19 21:54 Dose: 100 mls/hr Sodium Chloride (Normal Saline -) 1,000 mls @ 83 mls/hr IV ASDIR [facility] Levothyroxine Sodium (Synthroid -) 112 mcg PO DAILY@0700 [facility] Magnesium Hydroxide (Milk Of Magnesia -) 30 ml PO Q8H PRN PRN Reason: INDIGESTION Morphine Sulfate (Morphine Sulfate) 2 mg IVPUSH Q4H PRN PRN Reason: PAIN LEVEL 6-10 Nebivolol (Bystolic -) 5 mg PO HS [facility] Last Admin: 11/04/19 21:53 Dose: 5 mg Oxycodone HCl (Roxicodone -) 5 mg PO Q4H PRN PRN Reason: PAIN LEVEL 1-2 - Objective Vital Signs: Vital Signs Temperature 97.6 F 11/04/19 22:00 Pulse Rate 85 11/04/19 22:00 Respiratory Rate 18 11/04/19 22:00 Blood Pressure 139/77 11/04/19 22:00 O2 Sat by Pulse Oximetry (%) 93 L 11/04/19 20:36 Gastrointestinal: Yes: Normal Bowel Sounds (incisions clean and dry) Labs: CBC, BMP 11/04/19 05:40 11/04/19 05:40 INR, PTT INR 1.01 (0.83-1.09) 11/03/19 22:45 Problem List - Problems (1) Abnormal LFTs Code(s): R94.5 - ABNORMAL RESULTS OF LIVER FUNCTION STUDIES (2) Cholelithiasis Code(s): K80.20 - CALCULUS OF GALLBLADDER W/O CHOLECYSTITIS W/O OBSTRUCTION Qualifiers: Cholelithiasis location: gallbladder Cholecystitis presence: without cholecystitis Biliary obstruction: without biliary obstruction Qualified Code(s): K80.20 - Calculus of gallbladder without cholecystitis without obstruction Assessment/Plan doing well Clear for Discharge May shower prn Follow up in 2 weeks
[2019-11-05] MEDS: HEPARIN NA (PORCINE) 5,000 UNITS/ML 1ML VIAL SQ SCH ×2 (06:35→16:09)
[2019-11-05] MEDS ORDERED: LEVOTHYROXINE NA 112 MCG TABLET (FP) PO SCH (07:00)
[2019-11-05 07:05] VITALS: TEMP 97.7
--- NOTE | 2019-11-05 08:03 | DS ---
Physical Examination Vital Signs: Vital Signs Temperature 97.7 F 11/05/19 07:03 Pulse Rate 67 11/05/19 07:03 Respiratory Rate 18 11/05/19 07:03 Blood Pressure 111/69 11/05/19 07:03 O2 Sat by Pulse Oximetry (%) 93 L 11/04/19 20:36 Cardiovascular: Yes: Regular Rate and Rhythm Respiratory: Yes: Regular, CTA Bilaterally Gastrointestinal: Yes: Normal Bowel Sounds, Soft. No: Tenderness Wound/Incision: Yes: Clean/Dry, Open to air. No: Reddened Discharge Summary Problems reviewed: Yes Reason For Visit: CHOLELITHIASIS Current Active Problems Abnormal LFTs (Acute) Anti-cardiolipin antibody positive (Acute) Bariatric surgery status (Acute) Biliary colic (Acute) Cholecystitis (Acute) Cholelithiasis (Acute) Hypertension (Acute) Hypothyroid (Acute) Hospital Course: - Problems (1) Cholelithiasis Assessment/Plan: GI AND SURGERY CONSULTS APPRECIATED Operative Date: 11/04/19 Pre-Operative Diagnosis: Acute cholecystitis Operation: laparoscopic cholecystectomy Findings: large stone and edema Post-Operative Diagnosis: Same as Pre-op Surgeon: Yash Dash DVT PROPHYLAXIS Code(s): K80.20 - CALCULUS OF GALLBLADDER W/O CHOLECYSTITIS W/O OBSTRUCTION Qualifiers: Cholelithiasis location: gallbladder Cholecystitis presence: without cholecystitis Biliary obstruction: without biliary obstruction Qualified Code(s): K80.20 - Calculus of gallbladder without cholecystitis without obstruction (2) Abnormal LFTs Assessment/Plan: MONITOR--IMPROVING Code(s): R94.5 - ABNORMAL RESULTS OF LIVER FUNCTION STUDIES (3) Anti-cardiolipin antibody positive Assessment/Plan: ANTICOAGULATION POSTOP HEM CONSULT 1) Anticardiolipin antibodies (IgG and IgM), Vuzr-vpib1-afwdcnhgonvv (GP) I ab (IgM and IgG), Lupus anticoagulant, aPTT 2) Consider prophylactic ASA. Agree with DVT prophylaxis. 3) Follow up with Rheumatology Code(s): R76.0 - RAISED ANTIBODY TITER (4) Bariatric surgery status Code(s): Z98.84 - BARIATRIC SURGERY STATUS (5) Hypertension Assessment/Plan: BYSTOLIC ARB Code(s): I10 - ESSENTIAL (PRIMARY) HYPERTENSION (6) Hypothyroid Assessment/Plan: SYMTHROID 112--TO 125 TSH Code(s): E03.9 - HYPOTHYROIDISM, UNSPECIFIED Condition: Fair - Instructions Diet, Activity, Other Instructions: SYNTHROID INCREASED TO 125 Referrals: Brendon Quinones MD [Primary Care Provider] - Disposition: HOME - Home Medications Comprehensive Discharge Medication List: Ambulatory Orders Azilsartan Medoxomil [Edarbi] 40 mg PO HS 11/03/19 Nebivolol [Bystolic -] 5 mg PO HS 11/03/19 Acetaminophen [Tylenol .Regular Strength -] 650 mg PO Q6H PRN tablet 11/05/19 Docusate Sodium [Colace -] 100 mg PO BID capsule 11/05/19 Levothyroxine [Synthroid -] 125 mcg PO DAILY #30 tablet 11/05/19
[2019-11-05 08:10] LABS: BASO % 0.1 % (0-2.0); HEMATOCRIT 34.4 % (32.4-45.2); HEMOGLOBIN 11.3 GM/dL (10.7-15.3); LYMPH % 10.2 % (8-40); MCH 29.3 pg (25.7-33.7); MCHC 32.8 g/dl (32.0-36.0); MEAN CELL VOLUME 89.2 fl (80-96); MEAN PLT VOLUME 9.3 fl (7.5-11.1); MONO % 4.3 % (3.8-10.2); NEUT % 85.4 % (42.8-82.8); PLATELET COUNT 273 K/MM3 (134-434); RBC 3.85 M/mm3 (3.60-5.2); RDW 13.5 % (11.6-15.6); WHITE BLOOD COUNT 7.9 K/mm3 (4.0-10.0)
[2019-11-05 08:41] LABS: ALBUMIN 3.1 g/dl (3.4-5.0); BILIRUBIN,TOTAL 0.6 mg/dL (0.2-1); BLOOD UREA NITROGEN 6.6 mg/dL (7-18); CALCIUM 8.3 mg/dL (8.5-10.1); CREATININE 0.7 mg/dL (0.55-1.3); POTASSIUM 4.3 mmol/L (3.5-5.1); TOT PROT 6.1 g/dl (6.4-8.2)
[2019-11-05] MEDS: DOCUSATE SODIUM 100 MG CAPSULE (FP) PO SCH (10:51)
[2019-11-05] MEDS: FAMOTIDINE 20 MG/50 ML IVPB 20 MG/50 ML MG IVPB SCH (10:52)
--- NOTE | 2019-11-05 11:02 | PN ---
Physical Exam: SUBJECTIVE: Patient seen and examined no new complain had breakfast on hep sq use TITI and incentive spirometry after discharged use PPI with ASA spoken with Dr Winn and agree with the plan as pt has gastric sleeve and EGD one year ago spoke with Dr Alvares and agree wit ASA to be continued now OBJECTIVE: Vital Signs Period Temp Pulse Resp BP Sys/Burton Pulse Ox Last 24 Hr 97.6 F-98.2 F 62-85 12-20 96-139/61-82 93-96 GENERAL: Awake, alert, and fully oriented, HEAD: NC/AT EYES: WALTER, EOMI ,sclera anicteric, ENT: Dry mucous membranes. NECK: supple breast no masses palpated LUNGS: Breath sounds equal, clear to auscultation bilaterally. No wheezes, and no crackles. No accessory muscle use. HEART: Regular rate and rhythm, normal S1 and S2 without murmur, rub or gallop. ABDOMEN: Soft, diffuse tenderness from surgery , mild distended, normoactive bowel sounds, LOWER EXTREMITIES: 2+ pulses, warm, well-perfused. No calf tenderness. No peripheral edema. NEUROLOGICAL: no focal deficit . Normal speech. PSYCHIATRIC: Cooperative. SKIN: Warm, dry, 3 laparoscopic surgery wound in the belly node : no lymph nodes palpable Laboratory Results - last 24 hr 11/04/19 11/05/19 11/05/19 16:50 07:10 07:10 WBC 7.9 RBC 3.85 Hgb 11.3 Hct 34.4 MCV 89.2 MCH 29.3 MCHC 32.8 RDW 13.5 Plt Count 273 MPV 9.3 Absolute Neuts (auto) 6.8 Neutrophils % 85.4 H D Lymphocytes % 10.2 D Monocytes % 4.3 Eosinophils % 0.0 D Basophils % 0.1 Nucleated RBC % 0 Sodium 141 Potassium 4.3 Chloride 110 H Carbon Dioxide 24 Anion Gap 7 L BUN 6.6 L Creatinine 0.7 Est GFR (CKD-EPI)AfAm 113.84 Est GFR (CKD-EPI)NonAf 98.23 Random Glucose 120 H Calcium 8.3 L Total Bilirubin 0.6 AST 57 H ALT 92 H Alkaline Phosphatase 74 Total Protein 6.1 L Albumin 3.1 L Blood Type A POSITIVE Active Medications Generic Name Dose Route Start Last Admin Trade Name Freq PRN Reason Stop Dose Admin Acetaminophen 650 mg 11/04/19 16:21 11/05/19 10:51 Tylenol - PO 650 mg Q6H PRN Administration PAIN LEVEL 4 - 6 Docusate Sodium 100 mg 11/04/19 23:15 11/05/19 10:51 Colace - PO 100 mg BID TALISHA Administration Heparin Sodium (Porcine) 5,000 unit 11/04/19 22:00 11/05/19 06:35 Heparin - SQ 5,000 unit TID TALISHA Administration Lactated Ringer's 1,000 mls @ 125 mls/hr 11/04/19 16:21 11/04/19 16:55 Lactated Ringers Solution IV Not Given ASDIR T[facility] Famotidine/Sodium Chloride 20 mg in 50 mls @ 100 mls/hr 11/04/19 22:00 10:52 Pepcid 20 Mg Premixed Ivpb - IVPB 100 mls/hr BID TALISHA Administration Sodium Chloride 1,000 mls @ 83 mls/hr 11/04/19 16:21 Normal Saline - IV ASDIR [facility] Levothyroxine Sodium 112 mcg 11/05/19 07:00 11/05/19 06:36 Synthroid - PO 112 mcg DAILY@0700 TALISHA Administration Magnesium Hydroxide 30 ml 11/04/19 23:02 11/05/19 10:51 Milk Of Magnesia - PO 30 ml Q8H PRN Administration INDIGESTION Morphine Sulfate 2 mg 11/04/19 16:21 Morphine Sulfate IVPUSH Q4H PRN PAIN LEVEL 6-10 Nebivolol 5 mg 11/04/19 22:00 11/04/19 21:53 Bystolic - PO 5 mg HS TALISHA Administration Oxycodone HCl 5 mg 11/04/19 13:16 11/05/19 10:51 Roxicodone - PO 5 mg Q4H PRN Administration PAIN LEVEL 1-2 CBC, BMP 11/05/19 07:10 11/05/19 07:10 ASSESSMENT/PLAN: # 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 was on plaQunile stop on her own in 2011 after the gastric sleeve as it became diffcult to swallow medicine # 3 first trimester miscarriages * mixed studies , PT, PTT , anti cardiolipin ab , anti B2 glycoprotien ab * Anti Ds DNA , DEMARCO * denies any recent NSAIDS , or herbal supplement used * Anticardiolipin antibodies (IgG and IgM), Ilun-ycxv4-ekcbhivfhxtw (GP) I ab (IgM and IgG), Lupus anticoagulant, aPTT * Consider prophylactic ASA. and PPI * Dr gonsalves spoke with Dr Winn GI agree with the plan pending the surgery approval * Follow up with Rheumatology and hematology out pt # Acute cholecystitis POD # 1 , pain control , IV fluids , prophylaxis abx #HTN cont home meds Bystolic 5 mg and Azilsartan 40 mg # Hypothyroidism cont synthroid 112 mcg Q Am # abnormal LFts : monitor out pt follow up with Dr Gonsalves within one week for lab result pt made aware TITI Incentive spirometry early ambulation Visit type - Emergency Visit Emergency Visit: Yes ED Registration Date: 11/03/19 Care time: The patient presented to the Emergency Department on the above date and was hospitalized for further evaluation of their emergent condition. - New Patient This patient is new to me today: No - Critical Care Critical Care patient: No ATTENDING PHYSICIAN STATEMENT I saw and evaluated the patient. I reviewed the resident's note and discussed the case with the resident. I agree with the resident's findings and plan as documented. SUBJECTIVE: OBJECTIVE: ASSESSMENT AND PLAN:
--- NOTE | 2019-11-05 11:03 | PN ---
Progress Note (short form) - Note Progress Note: 54F s/p lap cholecystectomy under GA. No new c/o. Discharge planning. Vital Signs Period Temp Pulse Resp BP Sys/Burton Pulse Ox Last 24 Hr 97.6 F-98.2 F 62-85 12-20 96-139/61-82 93-96 CBC, BMP 11/05/19 07:10 11/05/19 07:10 - NO anesthetic complications.
--- NOTE | 2019-11-05 13:02 | PATH ---
Surgical Pathology Report Patient Name: DENZEL PERERA [facility]. Rec. #: [id number] /Age/Gender: 1965 (Age: 54) / F Account: [id number] Location: [facility] PEDS/ADOL Taken: 11/04/2019 Received: 11/04/2019 Reported: 11/05/2019 Physicians: Nilson Long M.D. Specimen(s) Received GALLBLADDER Clinical History Cholelithiasis Final Diagnosis GALLBLADDER, LAPAROSCOPIC CHOLECYSTECTOMY: CHRONIC CHOLECYSTITIS WITH CHOLELITHIASIS. Electronically Signed Sophie Wells M.D. Gross Description Received in formalin, labeled "gallbladder," is a 7.8 x 2.7 x 2.5 cm. gallbladder with a 0.2 cm. in length portion of cystic duct attached. The outer surface is plaza-pink and varies from smooth to shaggy. The lumen contains green, tenacious bile as well as a 1.8 cm in greatest dimension yellow-green, ovoid cholelith. The mucosa is plaza and velvety. The wall of the gallbladder measures 0.1 cm. in thickness. Program Lead sections are submitted in one cassette. /[facility]
[2019-11-05 16:07] VITALS: BP 125/71; PULSE 78
--- NOTE | 2019-11-05 18:58 | OP ---
DATE OF OPERATION: 11/04/2019 PREOPERATIVE DIAGNOSIS: Acute cholelithiasis. POSTOPERATIVE DIAGNOSIS: Acute cholelithiasis. PROCEDURE: Laparoscopic cholecystectomy. SURGEON: Yash Dash MD [employer] VICE PRESIDENT: ___Ravin__ COMPLICATIONS: None. Bleeding was minimal. Patient tolerated the procedure well. HISTORY: This is a 54-year-old female with a history of obesity, hypertension who presents with abdominal pain. The right upper quadrant pain ultrasound shows evidence of a large gallstone and edema. Laboratory tests showed evaluation of liver enzymes. The patient was admitted and referred for surgical evaluation. Recommended that she undergo a laparoscopic cholecystectomy. She agreed to proceed as planned. DESCRIPTION OF PROCEDURE: In the operating room, she was placed in supine position. After the induction of general anesthesia, she was prepped and draped in usual sterile fashion. The operation was begun with a periumbilical incision performed with a scalpel and carried through the subcutaneous tissue. The fascia was incised. A standard Darwin approach was used to enter the peritoneal cavity. A 12-mm port was then introduced in the area. Insufflation to a pressure of 15 mmHg was established. Next, under direct vision, three 5-mm ports were placed, 2 in the right upper quadrant, 1 in the epigastrium. The patient was positioned in a reverse Trendelenburg position. At this point, the gallbladder was grasped and retracted superiorly and laterally. The cystic hilum was then dissected with enlarged Calot node, which was dissected off the anterior aspect exposing the cystic artery and cystic duct. The cystic artery was anteriorly positioned. It was 1st dissected and then allowed access to posterior dissection of the cystic duct. They were both then circumferentially dissected. The critical view of safety was established. Visualization of the bare area of the liver delivered through the triangle of Calot. The common bile duct was identified and visualized. The cystic duct entry into the common bile duct clearly established. At this point then the cystic duct was ligated and the clips were divided with Endo Adrian. The cystic artery was similarly ligated and clipped and divided. Then the gallbladder was dissected off the liver bed using a hook dissector. Care was taken to avoid perforation of the gallbladder or injury to the liver bed. The plane of edema within the liver bed allowed for safe dissection and careful dissection. The gallbladder was then intact placed in an EndoCatch bag and removed through the umbilical port. The fascia at the umbilical port was closed with 0 Vicryl sutures. All incisions were infiltrated with Marcaine with Exparel. The skin was closed with 4-0 Monocryl. Dermabond was applied, and the patient was returned to the recovery room awake and alert in sterile condition. She tolerated the procedure well. Veronica [id number] MTDD
--- NOTE | 2019-11-08 19:14 | PN ---
Progress Note (short form) - Note Progress Note: Patient seen and examined Recovering post op. denies any complaints AFVSS Cor: RSR, No murmurs, No gallops Lungs: Clear to P&A Abd: Soft, Normal bowel sounds, No organomegaly Ext:No significant edema Labs/Meds reviewed A/P 54 y/o lady with a significant PMH of HTN, hypothyroidism,3 miscarriage first trimester, +anticardiolipin ( no h/o thrombosis), who presents to the ED for evaluation of abdominal pain for 1.5 hours. radiated to her B/L shoulders , associated nausea s/p laparoscopic cholecystectomy for acute chlecystitis h/o + anticardiolipin, no h/o thrombosis. h/o miscarriages in first trimester. Was seen by Dr. Godwin at [facility] and had been on plaquenil and baby ASA. Self d/cd plaquenil. Last asa dose 2 weeks ago --took it randomly Recommend: 1) Anticardiolipin antibodies (IgG and IgM), Sjrt-shye7-owqtofovfqwx (GP) I ab (IgM and IgG), Lupus anticoagulant, aPTT 2) Consider prophylactic ASA. 3) Follow up with Rheumatology Wei stockings Incentive spirometry Discussed with Dr. Winn/Dr. Long Resident Dr. pederson discussed with Dr. Emerson
--- NOTE | 2019-11-08 19:16 | PN ---
Progress Note (short form) - Note Progress Note: Patient seen and examined Recovering post op. denies any complaints AFVSS Cor: RSR, No murmurs, No gallops Lungs: Clear to P&A Abd: Soft, Normal bowel sounds, No organomegaly Ext:No significant edema Labs/Meds reviewed A/P 54 y/o lady with a significant PMH of HTN, hypothyroidism,3 miscarriage first trimester, +anticardiolipin ( no h/o thrombosis), who presents to the ED for evaluation of abdominal pain for 1.5 hours. radiated to her B/L shoulders , associated nausea s/p laparoscopic cholecystectomy for acute chlecystitis h/o + anticardiolipin, no h/o thrombosis. h/o miscarriages in first trimester. Was seen by Dr. Godwin at [facility] and had been on plaquenil and baby ASA. Self d/cd plaquenil. Last asa dose 2 weeks ago --took it randomly Recommend: 1) Anticardiolipin antibodies (IgG and IgM), Ulfl-lnpd8-yqqrhadzfpyt (GP) I ab (IgM and IgG), Lupus anticoagulant, aPTT 2) Consider prophylactic ASA. 3) Follow up with Rheumatology Wei stockings Incentive spirometry Discussed with Dr. Winn/Dr. Long Resident Dr. pederson discussed with Dr. Emerson
[2019-11-09 12:09] LABS: DRVVT - 52.3 sec (0.0-47.0); dRVVT MIX 42.9 sec (0.0-47.0)
== END 2019-11-05 14:04 | disposition home or self-care (01) | DRG 419 ==
LOC: JER 17:55 → JERBED 19:58 → J4S 23:33
PROVIDERS: ADMIT Family Medicine; ATTEND Family Medicine
PROC: 0FT44ZZ Resection of Gallbladder, Percutaneous Endoscopic Approach (ICD-10-PCS; principal; 2019-11-04 10:00)
DX: K80.12 Calculus of gallbladder with acute and chronic cholecystitis without obstruction (principal); I10 Essential (primary) hypertension; E03.9 Hypothyroidism, unspecified; R94.5 Abnormal results of liver function studies; R10.11 Right upper quadrant pain
CPT/HCPCS: 36415; 71045-TC-FY; 76705-TC; 80053; 80061; 82150; 82550; 83690; 83721; 84439; 84443; 84484; 85025; 85610; 85613; 85730; 85732; 86038; 86140; 86146; 86160; 86225; 86850; 86900; 86901; 88304-TC; 93005; 93010; 94760; 99283-25; J0131; J1644; J7030

== ENCOUNTER 2020-10-27 19:07 | Emergency (ER) | payer BC ==
[2020-10-27 19:40] VITALS: TEMP 98; BMI 33.3
[2020-10-27] MEDS ORDERED: BAMLANIVIMAB 700 MG in SODIUM CHLORIDE 180 ML IVPB ONE (19:48)
[2020-10-27 21:09] LABS: BASO % 1.1 % (0-2.0); EOS % 3.6 % (0-4.5); HEMATOCRIT 37.8 % (32.4-45.2); HEMOGLOBIN 12.4 GM/dL (10.7-15.3); LYMPH % 30.7 % (8-40); MCH 29.3 pg (25.7-33.7); MCHC 32.8 g/dl (32.0-36.0); MEAN CELL VOLUME 89.4 fl (80-96); MEAN PLT VOLUME 9.2 fl (7.5-11.1); MONO % 7.9 % (3.8-10.2); NEUT % 56.7 % (42.8-82.8); PLATELET COUNT 271 K/MM3 (134-434); RBC 4.23 M/mm3 (3.60-5.2); RDW 13.7 % (11.6-15.6); WHITE BLOOD COUNT 5.8 K/mm3 (4.0-10.0)
[2020-10-27 21:26] LABS: POTASSIUM 4.5 mmol/L (3.5-5.1)
[2020-10-27 21:29] LABS: ALBUMIN 3.6 g/dl (3.4-5.0); CALCIUM 8.8 mg/dL (8.5-10.1)
[2020-10-27 21:32] LABS: CREATININE 0.7 mg/dL (0.55-1.3)
[2020-10-27 21:33] LABS: BILIRUBIN,TOTAL 0.5 mg/dL (0.2-1)
[2020-10-27 21:34] LABS: TOT PROT 7.4 g/dl (6.4-8.2)
[2020-10-27 23:58] VITALS: BP 146/83; PULSE 77
== END 2020-10-28 00:05 | disposition home or self-care (01) ==
LOC: JER 19:07
PROC: 3E033NZ Introduction of Analgesics, Hypnotics, Sedatives into Peripheral Vein, Percutaneous Approach (ICD-10-PCS; principal; 2020-10-27)
DX: R53.83 Other fatigue (principal)
CPT/HCPCS: 36415; 80053; 85025; 99284-25; M0239; Q0239